=== PATIENT | male | born 1935 | race Caucasian/White ===

== ENCOUNTER → 2016-07-19 | Outpatient (CLI) | payer MEDICARE | END | disposition home or self-care (01) | LOC: GMAJ 14:34 | PROVIDERS: ATTEND Family Medicine | DX: Z12.5 Encounter for screening for malignant neoplasm of prostate (principal) ==

== ENCOUNTER → 2017-03-21 | Outpatient (CLI) | payer MEDICARE | LOC: GMAJ 11:38 | PROVIDERS: ATTEND Family Medicine | DX: N40.1 Benign prostatic hyperplasia with lower urinary tract symptoms (principal) ==

== ENCOUNTER → 2018-03-20 | Outpatient (CLI) | payer MEDICARE ==
--- NOTE | 2018-03-20 13:08 | CT ---
EXAM DESCRIPTION: Abdomen w/Contrast CLINICAL HISTORY: 82 years Male, ACUTE PANCREATITIS COMPARISON: None. TECHNIQUE: Contiguous axial images through the abdomen were obtained after intravenous contrast administration. Sagittal and coronal reconstructions were reviewed. This exam was performed according to our departmental dose-optimization program, which includes automated exposure control, adjustment of the mA and/or kV according to patient size and/or use of iterative reconstruction technique. FINDINGS: The imaged lower thorax appears normal. The liver appears grossly unremarkable. Few gallstones are identified. The pancreas appears normal throughout its length with no acute inflammatory changes. The spleen and bilateral adrenal glands appear normal. A large simple cyst is noted in the upper pole of the right kidney. No hydronephrosis or perinephric fluid collections bilaterally. The stomach is not well-distended limiting detailed evaluation. The visualized small and large bowel loops appear normal. Moderate to severe atherosclerotic disease of the abdominal aorta is noted. The inferior vena cava is normal in size and caliber. No abnormally enlarged lymph nodes are seen. Degenerative changes are identified throughout the visualized spine. IMPRESSION: 1. Cholelithiasis. 2. No evidence of acute pancreatitis. Electronically signed by: Eulalia Flannery MD 03/20/2018 1:05 PM [employer]
== END ==
LOC: CT 11:14
PROVIDERS: ATTEND Family Medicine
DX: K85.90 Acute pancreatitis without necrosis or infection, unspecified (principal); K80.20 Calculus of gallbladder without cholecystitis without obstruction

== ENCOUNTER → 2019-01-09 | Outpatient (CLI) | payer MEDICARE | LOC: GMAJ 10:31 | PROVIDERS: ATTEND Family Medicine | DX: N40.1 Benign prostatic hyperplasia with lower urinary tract symptoms (principal) ==

== ENCOUNTER → 2019-11-13 | Outpatient (CLI) | payer MEDICARE | LOC: GMAJ 16:30 | PROVIDERS: ATTEND Family Medicine | DX: N30.00 Acute cystitis without hematuria (principal) ==

== ENCOUNTER → 2019-12-23 | Outpatient (CLI) | payer MEDICARE | LOC: GMAJ 16:33 | PROVIDERS: ATTEND Family Medicine | DX: N40.1 Benign prostatic hyperplasia with lower urinary tract symptoms (principal); E78.2 Mixed hyperlipidemia; I10 Essential (primary) hypertension ==